=== PATIENT | male | born 1980 | race Caucasian/White ===

== ENCOUNTER 2020-03-20 08:19 | Outpatient (CLI) | payer OTHER, SELFPAY | END 2020-03-20 08:20 | disposition home or self-care (01) | LOC: ANHSURGERY 08:21 | PROVIDERS: PCP Family Medicine; Visit Provider Surgery | DX: K42.9 Umbilical hernia without obstruction or gangrene (principal) | CPT/HCPCS: 36415; 86850; 86900; 86901 ==

== ENCOUNTER 2020-03-20 08:25 | Outpatient (CLI) | payer OTHER, SELFPAY ==
[2020-03-20 09:05] LABS: Hematocrit 46.8 % (42.0-52.0); Hemoglobin 15.8 g/dL (14.0-18.0); Mean Corpuscular HGB Conc 33.8 g/dl (32-36); Mean Corpuscular Hemoglobin 34.3 pg (26-34); Mean Corpuscular Volume 101.7 fl (80-100); Mean Platelet Volume 10.1 fl (7.4-10.4); Platelet Count Result 195 k/mm3 (150-375); Red Cell Distribution Width 13.3 % (11.5-14.5); White Blood Count 6.8 K/mm3 (4.5-10.0)
[2020-03-20 09:19] LABS: Alanine Aminotransferase 102 U/L (4-50); Albumin Level 4.1 g/dL (3.5-5.1); Alkaline Phosphatase 121 U/L (38-126); Anion Gap 4 mmol/L (8-16); Aspartate Amino Transferase 114 U/L (17-59); Bilirubin,Total 1.2 mg/dL (0.2-1.3); Blood Urea Nitrogen 8 mg/dL (9-20); Calcium 8.7 mg/dL (8.4-10.2); Carbon Dioxide 35 mmol/L (22-30); Chloride 102 mmol/L (98-107); Cholesterol 239 mg/dL (0-200); Estimated Glomerular Filt Rate > 60; Glucose 134 mg/dL (75-110); HDL Direct 33 mg/dL; Potassium 4.4 mmol/L (3.4-5.0); Sodium 141 mmol/L (137-145); Triglycerides 185 mg/dL (<150)
[2020-03-20 09:31] LABS: LDL Cholesterol Direct 199 mg/dL
[2020-03-20 10:10] LABS: Free T4 Free Thyroxine 1.25 ng/mL (0.78-2.19)
== END 2020-03-20 08:26 | disposition home or self-care (01) ==
LOC: ANHLAB 08:28
PROVIDERS: PCP Family Medicine; Visit Provider Physician Assistant
DX: F32.9 Major depressive disorder, single episode, unspecified (principal); E66.01 Morbid (severe) obesity due to excess calories; Z79.899 Other long term (current) drug therapy
CPT/HCPCS: 36415; 80053; 80061; 84439; 84443; 85027; 86850; 86900; 86901

== ENCOUNTER → 2020-03-21 00:59 | Outpatient (CLI) | payer OTHER, SELFPAY ==
[2020-03-21 19:49] LABS: SARS-CoV-2 RNA PCR Negative
== END ==
PROVIDERS: PCP Family Medicine; Visit Provider Surgery
DX: Z01.812 Encounter for preprocedural laboratory examination (principal); Z20.822 Contact with and (suspected) exposure to COVID-19
CPT/HCPCS: C9803; U0003; U0005

== ENCOUNTER 2020-03-24 00:39 | Day surgery (SDC) | payer OTHER, SELFPAY ==
[2020-03-17 16:06] VITALS: BMI 48.8
--- NOTE | 2020-03-23 11:08 | WPDANESEPPF ---
Anes - Initial Pre Proc Eval Procedure: Operation Date: 03/24/20 07:30 Proposed Procedures p Laparoscopic Incarcerated Umbilical Hernia Repair with Mesh, Davinci Assisted - Kit Whiting DO Date/Time: 03/23/20 11:08 Surgeon: Kit Whiting DO Pre Op Diagnosis: incarcerated umbilical hernia Patient Data Age: 39 Gender: M Height: 1.8 m Weight: 158.76 kg Allergies Allergy/AdvReac Type Severity Reaction Status Date / Time amoxicillin Allergy Unknown Unknown Verified 03/19/20 08:44 Penicillins Allergy Unknown Unknown Verified 03/19/20 08:44 Home Medications Medication Instructions Recorded Confirmed Type sertraline 100 mg tablet See Rx Instructions .ROUTE 02/17/20 02/28/20 Rx .COMPLEX #30 tablet trazodone 50 mg tablet See Rx Instructions PO .COMPLEX 03/19/20 03/19/20 Rx #60 tablet Patient hx anesthesia problems: none Family hx anesthesia problems: none PMFSH Past Medical History Medical History (Updated 03/23/20 @ 11:09 by Tony Zapata DO) Depression, recurrent GERD (gastroesophageal reflux disease) Surgical History Surgical History S/P ACL repair Bilateral Family History Family History Mother Hypertension Family history of elevated blood lipids Family history of cardiovascular disease Father Family history of cardiovascular disease Grandparent Pancreatic cancer Social History Social History (Updated 03/24/20 @ 06:58 by Tony Zapata DO) Smoking status: Current every day smoker Tobacco type: smokeless tobacco Smokeless tobacco user: chewing tobacco Alcohol intake: current Alcohol use details: 3-6 beers daily Substance use type: does not use Spiritual care concerns: No Anes - Eval Final PreProcedure Day of Procedure 03/23/20 11:08 Patient weight: morbidly obese Heart: regular rate and rhythm Lungs: clear to auscultation and normal air movement Airway: Mallampati scale class III Neurological: alert and oriented Last oral intake: >/= 8 hours ASA classification: III Emergent: no Anesthetic plan: proceed Anesthesia type and monitoring: general ETT and standard monitoring Informed Consent: The patient's anesthetic plan and its attendant risks and benefits were discussed with the patient/family/POA. Questions were solicited and answers provided to the satisfaction of the patient/family/POA.
[2020-03-24] VITALS (8 sets, daily range): BP systolic 110–142; BP diastolic 75–87; PULSE 90–109; RESP 10–20; TEMP 36.6–36.8; O2SAT 91–97; BMI 49.1
[2020-03-24] MEDS: ACETAMINOPHEN 500 MG TABLET 1000 MG PO (07:18)
[2020-03-24] MEDS: LACTATED RINGERS 1,000 ML 30 ML IV CONT ×2 (07:18→10:41)
[2020-03-24] MEDS: KETOROLAC 15 MG/ML VIAL (*BKC) IV PUSH (07:18)
--- NOTE | 2020-03-24 07:18 | WPDHPUPDATE1 ---
History and Physical Update Update Date/Time: 03/24/20 07:18 History and Physical has been reviewed, including an updated exam of the patient. There are NO changes in the patient's condition. Risks, benefits, and alternatives have been discussed and questions answered. Patient agrees to proceed with procedure.
[2020-03-24] MEDS: CLINDAMYCIN 900 MG/D5W 50 ML 900 MG/50 ML PIGGYBACK 50 MG IVPB (08:17)
--- NOTE | 2020-03-24 09:37 | SUR.OPER ---
SYMBOTEX [id number], LOT [id number], 09-05-2024. UMBILICAL MESH.
--- NOTE | 2020-03-24 10:31 | PM.PROC ---
Procedure Note - Detailed Date of procedure: 03/24/20 Pre-op diagnosis: incarcerated umbilical hernia Post-op diagnosis: same Procedure performed: Laparoscopic incarcerated umbilical hernia repair with Symbotex mesh, da Rere assisted Description of procedure: Procedure as well as risks, benefits, and alternatives were discussed with the patient. Written consent was obtained and placed in chart prior to procedure. Patient was brought back to surgical suite. He was placed supine on operating table. Time-out was done to confirm patient and procedure. He was then intubated by the anesthesia department. A bump was placed under his left hip, and the bed was flexed slightly to extend the space between his costal margin and iliac crest. His abdomen was prepped and draped in sterile fashion using chlorhexidine prep. A 5 millimeter incision was made in the left upper quadrant, and a 5 millimeter Optiview trocar was advanced through the abdominal layers under direct visualization. Once inside the abdominal cavity, carbon dioxide insufflation was used to create a pneumoperitoneum. His abdomen was inspected. An 8 millimeter incision was made in the left lower quadrant, and an 8 millimeter robotic trocar was placed under direct visualization. Another 8 millimeter incision was made in the left lateral abdomen, and an 8 millimeter robotic trocar was placed under direct visualization. Exparel was infiltrated along the lateral abdominal carpenter to perform a transversus abdominis plane block bilaterally. The 5 millimeter port was removed, the incision was extended to 12 millimeters, and a 12 millimeter air seal port was placed under direct visualization. A Jaspreet-Urbano cone was also used to place an 0-Vicryl simple interrupted suture at this trocar site. The robotic arms were brought up to the patient's bedside and secured to the ports. The camera and instruments were inserted, and I then moved over to the robotic console and took control of the camera and instruments. After careful thorough inspection of the abdominal cavity, I began my dissection at the hernia. The incarcerated omentum was carefully reduced. A preperitoneal pocket was the only carefully created starting in the left upper quadrant using scissors with electrocautery. The pocket was extended caudally and then medially as the hernia sac and preperitoneal fat was carefully reduced from within the hernia defect. I dissected a widened the planning to allow for a 10 cm x 15 cm piece of mesh. I then measured the hernia size. The hernia measured 2 cm x 2 cm. The fascia was closed using an 0-Stratafix running suture in a vertical fashion. A 10 cm x 15 cm Symbotex mesh was then placed within the preperitoneal pocket. This was oriented vertically with the mesh centered on the hernia defect. The mesh was then secured to the abdominal wall using 2 0 Vicryl simple interrupted sutures at the corners. The peritoneum was then closed over the mesh using 3 0 V lock running absorbable suture. There was 1 small hole in the hernia sac and another hole in the peritoneum that were both closed using 3 0 Vicryl [id number] sutures. The repair was inspected, and one final inspection was made around the abdominal cavity. The robotic instruments were then removed, and the robotic arms were disengaged from the trocars. The ports were then removed under direct visualization, the camera was removed, and the pneumoperitoneum was released. The 0 Vicryl transfascial suture was tied down. The skin of the incisions was then approximated using 4-0 Monocryl subcuticular suture. Exofin glue was then applied on top. The patient was then awakened from anesthesia, extubated, and transferred to recovery. Implants: Symbotex 15cm x 10cm Mesh Anesthesia: GETA and local (Exparel) Surgeon: Kit Whiting DO Estimated blood loss (mL): 5 Drains: No Pathology: none sent Complications: No immediate complications Condition: stable Disposit
== END 2020-03-24 13:00 | disposition home or self-care (01) ==
PROVIDERS: PCP Family Medicine; Visit Provider Surgery
PROC: (CPT 49653; principal; 2020-03-24 07:30)
DX: K42.0 Umbilical hernia with obstruction, without gangrene (principal); F33.9 Major depressive disorder, recurrent, unspecified; K21.9 Gastro-esophageal reflux disease without esophagitis; F17.220 Nicotine dependence, chewing tobacco, uncomplicated; E66.01 Morbid (severe) obesity due to excess calories; Z68.42 Body mass index [BMI] 45.0-49.9, adult
CPT/HCPCS: 49653; A9270; C1781; C9290; C9803; J0330; J1100; J1885; J2250; J2370; J2405; J2704; J2710; J3010; J7030; J7120; U0003; U0005

== ENCOUNTER 2023-02-20 05:20 | Inpatient (IN) | payer OTHER, SELFPAY ==
[2023-02-20] VITALS (15 sets, daily range): BP systolic 111–132; BP diastolic 58–97; PULSE 101–125; RESP 15–27; TEMP 36.1–36.8; O2SAT 96–100; BMI 35.8
--- NOTE | ~2023-02-20 | US_ITS ---
EXAMINATION: US abdomen complete DATE: 02/20/2023 15:18 INDICATION: Abdominal pain and elevated liver enzymes. Alcohol use. TECHNIQUE: Multiple grayscale and Doppler ultrasound images of the abdomen were obtained. COMPARISON: None FINDINGS: Mild splenomegaly measuring 13.8 x 7.5 x 7.1 cm. There is normal renal contour and echogenicity bilat erally. The right kidney measures 12.3 x 5.2 x 5.9 cm and the left 12.4 x 6.4 x 5.5 cm. There are no focal renal lesions identified. There is no hydronephrosis. There is increased hepatic parenchymal echogenicity and coarsened echotexture consistent with diffuse hepatic steatosis. There is subtle leana er surface nodularity consistent with cirrhosis. No liver lesion identified. No intrahepatic biliary duct dilation suspected. Portal venous flow was seen in the hepatopetal, normal direction and has no rmal Doppler waveform. The gallbladder is normal in appearance. There is no cholelithiasis. The comm on bile duct is not clearly visualized. The right hepatic duct measures 6-7 mm, which is mildly dilat ed. The pancreatic body is normal in appearance. The pancreatic head and tail are not clearly visual ized. Small amount of perihepatic ascites. The proximal aorta and inferior vena cava are poorly visua lized but patent with normal directional flow on color Doppler. Sonographic Leblanc sign was reported as negative by the training instructor. IMPRESSION: 1. Cirrhosis and diffuse hepatic steatosis. 2. Small amount of likely secondary perihepatic ascites. 3. Mild splenomegaly suggesting portal venous hypertension. 4. Mild dilation of the right hepatic duct. The common bile duct is not clearly visualized. If there is clinical concern for biliary obstruction would consider MRCP for further evaluation. Reviewed, dictated and finalized at location [facility]. [employer] IMPRESSION: 1. Cirrhosis and diffuse hepatic steatosis. 2. Small amount of likely secondary perihepatic ascites. 3. Mild splenomegaly suggesting portal venous hypertension. 4. Mild dilation of the right hepatic duct. The common bile duct is not clearly visualized. If there is clinical concern for biliary obstruction would conside r MRCP for further evaluation.
--- NOTE | ~2023-02-20 | XR_ITS ---
Portable chest x-ray Comparison: 06/20/2017 Clinical History: Hemoptysis Findings: Lungs are clear, without focal consolidation or pleural effusion. Cardiomediastinal silho uette is stable. Bones and soft tissues are unremarkable. Impression: Normal chest. Reviewed, dictated and finalized at [facility]. [employer] INST[employer]ER Impression: Normal chest.
[2023-02-20 06:17] LABS: Basophils Absolute Auto 0.1 K/mm3 (0.0-0.1); Basophils Percent Auto 0.7 % (0.2-1.2); Eosinophils Percent Auto 0.1 % (0-4.4); Hematocrit 34.8 % (42.0-52.0); Immature Granulocyte Absolute 0.05 K/mm3 (0.00-0.031); Immature Granulocyte Percent A 0.4 % (0-0.5); Lymphocytes Percent Auto 9.6 % (18.3-44.2); Mean Corpuscular HGB Conc 31.6 g/dl (32-36); Mean Corpuscular Hemoglobin 35.4 pg (26-34); Mean Corpuscular Volume 111.9 fl (80-100); Mean Platelet Volume 10.5 fl (7.4-10.4); Monocytes Absolute Auto 0.7 K/mm3 (0.1-0.6); Monocytes Percent Auto 5.9 % (2.6-8.5); Neutrophils Absolute Auto 9.6 K/mm3 (1.3-6.7); Neutrophils Percent Auto 83.3 % (45.5-73.1); Platelet Count Result 183 k/mm3 (150-375); Red Blood Count 3.11 M/mm3 (4.6-6.20); Red Cell Distribution Width 15.8 % (11.5-14.5); White Blood Count 11.5 K/mm3 (4.5-10.0)
[2023-02-20 06:32] LABS: INR 1.3; Prothrombin Time 17.1 Seconds (11.1-14.7)
[2023-02-20 06:33] LABS: Alanine Aminotransferase 42 U/L (6-50); Albumin Level 3.4 g/dL (3.5-5.1); Alkaline Phosphatase 214 U/L (38-126); Anion Gap 12 mmol/L (8-16); Aspartate Amino Transferase 139 U/L (17-59); Bilirubin,Total 2.3 mg/dL (0.2-1.3); Blood Urea Nitrogen 11 mg/dL (9-20); Calcium 7.8 mg/dL (8.4-10.2); Carbon Dioxide 25 mmol/L (22-30); Chloride 103 mmol/L (98-107); Estimated CRCL calculation 173 ml/min; Estimated Glomerular Filt Rate > 60; Glucose 111 mg/dL (65-110); Partial Thromboplastin Time 39.4 SECONDS (22.3-36.8); Potassium 4.4 mmol/L (3.4-5.0); Sodium 140 mmol/L (137-145)
[2023-02-20] MEDS: LORazepam (*CRX) 1 MG TABLET PO (06:38)
[2023-02-20] MEDS: SODIUM CHLORIDE 0.9% IV 2,000 ML 999 ML IV CONT (06:42)
[2023-02-20 06:43] LABS: Anisocytosis 1+ (NORMAL); Platelet Estimate Adequate (Adequate); Schistocytes None Seen (NORMAL)
[2023-02-20] MEDS: METOCLOPRAMIDE HCL INJ 10 MG/2 ML VIAL IV PUSH (06:45)
--- NOTE | 2023-02-20 07:03 | ECG_ITS ---
Measurements Intervals [place] Rate: 99 P: 40 HI: 155 QRS: 42 QRSD: 97 T: 13 QT: 381 QTc: 489 Interpretive Statements SINUS RHYTHM BORDERLINE ST-T WAVE ABNORMALITY- ANT/INF LEADS BORDERLINE ECG NO PREVIOUS ECG AVAILABLE FOR COMPARISON Electronically Signed On 02-20-2023 7:58:01 COMPREHENSIVE OPHTHALMOLOGIST by Keith Goyal D.O.
--- NOTE | 2023-02-20 07:07 | ED.GENADULT ---
HPI - General Adult General Chief complaint: GI Bleed Stated complaint: Nosebleed, vomited blood first Time Seen by Provider: 02/20/23 05:31 History of Present Illness HPI narrative: This is a 42-year-old alcoholic presenting with bloody emesis. Patient woke up at 3:00 a.m. and was having coffee-ground emesis. He also had a nose bleed. patient states that he feels lightheaded and has some epigastric discomfort. Patient initially said he only drinks recreationally on the weekend but once his mother left the room and I confronted about his drinking he admits that he still drink heavily. Last drink was approximately 3 days ago. Patient feels anxious at this time. He denies any history of varicocele bleeding or liver cirrhosis. He denies history of alcohol withdrawal. Related Data Allergies Allergy/AdvReac Type Severity Reaction Status Date / Time amoxicillin Allergy Unknown Unknown Verified 02/20/23 05:33 Penicillins Allergy Unknown Unknown Verified 02/20/23 05:33 [facility], [facility] Past Medical History Medical History Depression, recurrent GERD (gastroesophageal reflux disease) Surgical History Surgical History H/O umbilical hernia repair Laparoscopic incarcerated umbilical hernia repair with Symbotex mesh, da Rere assisted S/P ACL repair Bilateral Family History Family History Mother Hypertension Family history of elevated blood lipids Family history of cardiovascular disease Father Family history of cardiovascular disease Grandparent Pancreatic cancer Social History Social History Social History: Former smokeless tobacco user Smoking status: Current every day smoker Alcohol intake: current Alcohol use details: weekends only had 8 - 10 on Fri, Sat and Sun Substance use: never Substance use type: does not use Lack of Transportation: No Lack of Food: Never True Current Housing: I Have Housing Concerned About Future Housing: No Difficulty Paying Gas/Electric Bills: No Difficulty Paying for Meds: No Currently Unemployed: No Education: High School Diploma/GED Difficulty w/ Childcare or Family Care: No Occupation/Education: unemployed Spiritual care concerns: No Exam Narrative: APPEARANCE: Patient appears uncomfortable, mild tremor baseline Head: atraumatic. EYES: EOMI, NOSE: Atraumatic NECK: Trachea midline RESPIRATORY: No increased rate of breathing clear auscultation CARDIOVASCULAR: tachycardic, mild edema lower extremities ABDOMINAL: epigastric tenderness without guarding or rebound\ digital rectal exam shows melanotic stool. hemoccult positive MUSCULOSKELETAl: No obvious deformities NEURO: Alert. Moving 4/4 extremities SKIN:: clammy skin PSYCHIATRIC: anxious appearing Course Vital Signs Vital signs: Vital Signs Temperature 96.9 F L 02/20/23 05:24 Pulse Rate 125 H 02/20/23 05:24 Respiratory Rate 20 02/20/23 05:24 Blood Pressure 132/97 H 02/20/23 05:24 Pulse Oximetry 100 02/20/23 05:24 Oxygen Delivery Room Air 02/20/23 05:24 Temperature 96.9 F L 02/20/23 05:24 Pulse Rate 110 H 02/20/23 06:59 Respiratory Rate 17 02/20/23 06:59 Blood Pressure 123/72 02/20/23 06:59 Pulse Oximetry 98 02/20/23 06:59 Oxygen Delivery Room Air 02/20/23 05:24 Medical Decision Making [facility] Narrative Medical decision making narrative: -Course: 42-year-old male with alcohol use disorder presenting with epistaxis, hematemesis and melanotic stool. epistaxis was controlled with direct pressure. He is tachycardic on arrival with cool clammy skin and a mild tremor. Suspect combination of upper GI bleed and alcohol withdrawal. Patient started on a Protonix, ceftriaxone, octreotide and given Ativan. patient will be admitted to hosp
[2023-02-20 07:19] LABS: Ethanol 12 mg/dL (<10)
[2023-02-20] MEDS: PANTOPRAZOLE SODIUM IV 40 MG VIAL 80 MG IV PUSH (07:42)
[2023-02-20] MEDS: LORazepam INJ (*CRX) 2 MG/ML VIAL IV PUSH (07:42)
[2023-02-20 08:10] LABS: Hematocrit 34.6 % (42.0-52.0); Hemoglobin 10.7 g/dL (14.0-18.0)
--- NOTE | 2023-02-20 08:20 | PC.NURSE ---
Phlebotomy called to acquire blood cultures. Unable to start anitbiotics until cultures have been obtained.
--- NOTE | 2023-02-20 09:49 | ADMGEN ---
This patient, Xavier Sanchez, was admitted to IMU Room 232-01. Patient/family oriented to hospital policies and general routines including ID bracelet, bed and alarms, visiting hours, pain management, procedures, bathroom and other care routines, personal items, smoking policy, room service/diet, and visiting hours. Information on how to activate the Rapid Response Team has been discussed. Patient/Family are encouraged to report perceived risks to care and to ask questions if they do not understand what they are told or what they should do.
[2023-02-20] MEDS: LACTATED RINGERS 1,000 ML 125 ML IV CONT (10:32)
--- NOTE | 2023-02-20 12:33 | WPDGICN ---
Assessment and Plan Assessment and plan (1) Acute GI bleeding: Code(s): K92.2 - Gastrointestinal hemorrhage, unspecified Status: Acute Assessment and Plan: admitted to hospital and started on appropriate medical therapy egd tomorrow, assess if ulcer, esophagitis, varices, etc monitor for more signs of bleeding (2) Alcohol abuse: Code(s): F10.10 - Alcohol abuse, uncomplicated Status: Acute Assessment and Plan: thiamine, monitor for withdrawal (3) Anemia: Qualifiers: Anemia type: unspecified type Qualified Code(s): D64.9 - Anemia, unspecified Code(s): D64.9 - Anemia, unspecified Status: Acute Assessment and Plan: monitor for more signs of bleeding (4) Elevated liver enzymes: Code(s): R74.8 - Abnormal levels of other serum enzymes Status: Acute Assessment and Plan: from alcohol use, will get liver ultrasound and hepatitis panel probably also component of alcoholic hepatitis (5) Depression, recurrent: Code(s): F33.9 - Major depressive disorder, recurrent, unspecified Status: Acute (6) Alcoholic hepatitis: Code(s): K70.10 - Alcoholic hepatitis without ascites Status: Acute GI Consult Note Consult date/time: 02/20/23 12:33 Reason for consult: coffee ground emesis, alcohol abuse HPI: Xavier Sanchez is a 42 year old male with history of depression, alcohol abuse (for years will drink 6-8 drinks daily, lately cut down to weekends), fatty liver here with new onset of coffee ground emesis few times but also had nose bleed, noted dark stool, denies previous GIB. Last drink few days ago. Also mild abdominal discomfort, hgb 10.7- similar to previous, macrocytosis, bili 2.3, ast/alt>2, no recent ultrasound. Started on iv protonix and octreotide Review of Systems Constitutional: Constitutional: Denies chills Eyes: Eyes: Denies blurry vision ENT: Reports epistaxis Cardiovascular: Cardiovascular: Denies chest pain Respiratory: Respiratory: Denies cough Gastrointestinal: Gastrointestinal: Reports hematemesis Genitourinary: Genitourinary: Denies dysuria Musculoskeletal: Musculoskeletal: Denies neck pain Integumentary/Breasts: Skin/Breast: Denies dry skin Neurologic: Denies Abnormal speech present Psychiatric: Psychiatric: Reports anxiety PMFSH Past Medical History Medical History (Updated 02/20/23 @ 12:38 by Tj Winston MD) Alcoholic hepatitis Depression, recurrent GERD (gastroesophageal reflux disease) Surgical History Surgical History H/O umbilical hernia repair Laparoscopic incarcerated umbilical hernia repair with Symbotex mesh, da Rere assisted S/P ACL repair Bilateral Family History Family History Mother Hypertension Family history of elevated blood lipids Family history of cardiovascular disease Father Family history of cardiovascular disease Grandparent Pancreatic cancer Social History Social History Social History: Former smokeless tobacco user Smoking status: Former smoker Tobacco type: smokeless tobacco Alcohol intake: current Drinks per week: 24 Alcohol use details: weekends only had 8 - 10 on Fri, Sat and Sun Substance use: never Substance use type: does not use Do You Feel Safe in your Home?: Yes Lack of Transportation: No Lack of Food: Never True Current Housing: I Have Housing Concerned About Future Housing: No Difficulty Paying Gas/Electric Bills: No Difficulty Paying for Meds: No Currently Unemployed: No Education: High School Diploma/GED Difficulty w/ Childcare or Family Care: No Occupation/Education: unemployed Spiritual care concerns: No Meds Home Medications and Allergies Home Medications Medication Instructions Recorded
--- NOTE | 2023-02-20 12:38 | PM.IMHP ---
H&P: HPI History of Present Illness Date/Time: 02/20/23 12:38 Chief Complaint: Coffee-ground emesis Narrative: ?This is a 42-year-old alcoholic presenting with bloody emesis.? Patient woke up at 3:00 a.m. and was having coffee-ground emesis.? He also had a nose bleed.? patient states that he feels lightheaded and has some epigastric discomfort.? Patient initially said he only drinks recreationally on the weekend but once his mother left the room and I confronted about his drinking he admits that he still drink heavily.? Last drink was approximately 3 days ago.? Patient feels anxious at this time.? He denies any history of varicocele bleeding or liver cirrhosis. He denies history of alcohol withdrawal. Related Data Review of Systems Review of Systems: - CONSTITUTIONAL: Denies weight loss, fever and chills. - HEENT: Denies changes in vision and hearing - RESPIRATORY: Denies SOB and cough. - CV: Denies palpitations and CP. - GI: Denies abdominal pain, reports nausea, vomiting and denies diarrhea. - : Denies dysuria and urinary frequency. - MSK: Denies myalgia and joint pain. - SKIN: Denies rash and pruritus. - NEUROLOGICAL: Denies headache and syncope. - PSYCHIATRIC: Denies recent changes in mood. Denies anxiety and depression. [facility] Past Medical History Medical History (Updated 02/20/23 @ 12:38 by Tj Winston MD) Alcoholic hepatitis Depression, recurrent GERD (gastroesophageal reflux disease) Surgical History Surgical History H/O umbilical hernia repair Laparoscopic incarcerated umbilical hernia repair with Symbotex mesh, da Rere assisted S/P ACL repair Bilateral Family History Family History Mother Hypertension Family history of elevated blood lipids Family history of cardiovascular disease Father Family history of cardiovascular disease Grandparent Pancreatic cancer Social History Social History Social History: Former smokeless tobacco user Smoking status: Former smoker Tobacco type: smokeless tobacco Alcohol intake: current Drinks per week: 24 Alcohol use details: weekends only had 8 - 10 on Fri, Sat and Sun Substance use: never Substance use type: does not use Do You Feel Safe in your Home?: Yes Lack of Transportation: No Lack of Food: Never True Current Housing: I Have Housing Concerned About Future Housing: No Difficulty Paying Gas/Electric Bills: No Difficulty Paying for Meds: No Currently Unemployed: No Education: High School Diploma/GED Difficulty w/ Childcare or Family Care: No Occupation/Education: unemployed Spiritual care concerns: No Meds Home Medications and Allergies Home Medications Medication Instructions Recorded Confirmed Type Celebrex 02/20/23 History sertraline 100 mg tablet 100 mg PO DAILY 02/20/23 History trazodone 50 mg tablet 50 - 100 mg PO HS PRN Insomnia 02/20/23 02/20/23 History Allergies Allergy/AdvReac Type Severity Reaction Status Date / Time amoxicillin Allergy Intermediate Rash Verified 02/20/23 10:50 Penicillins Allergy Mild Rash Verified 02/20/23 10:50 Vital Signs Vital Signs - 24 hr 02/20/23 05:24 02/20/23 05:50 02/20/23 06:59 Temperature 96.9 F L Pulse Rate 125 H 122 H 110 H Respiratory Rate 20 27 H 17 Blood Pressure 132/97 H 124/90 123/72 Pulse Oximetry 100 100 98 Oxygen Delivery Room Air 02/20/23 07:16 02/20/23 07:31 02/20/23 09:27 Temperature 97.5 F L Pulse Rate 106 H 111 H 113 H Respiratory Rate 21 H 15 26 H Blood Pressure 126/69 132/79 125/70 Pulse Oximetry 100 100 99 Oxygen Delivery 02/20/23 12:00 Temperature 98.2 F Pulse Rate 116 H Respiratory Rate 18 Blood Pressure 124/58 L Pulse Oximetry 98 Oxygen Delivery Exam Narrative: APPEARANCE:? Patient appears u
[2023-02-20] MEDS: PANTOPRAZOLE SODIUM IV 80 MG in SODIUM CHLORIDE 0.9% IV 500 ML 50 MG IV CONT ×2 (13:49→23:26)
[2023-02-20] MEDS: SODIUM CHLORIDE 0.9% IV 1,000 ML 75 ML IV CONT (13:49)
[2023-02-20 15:53] LABS: Hematocrit 29.6 % (42.0-52.0); Hemoglobin 9.9 g/dL (14.0-18.0)
[2023-02-20 22:09] LABS: Hematocrit 29.7 % (42.0-52.0); Hemoglobin 9.4 g/dL (14.0-18.0)
[2023-02-20] MEDS: chlordiazePOXIDE (*CRX) 25 MG CAPSULE PO (23:26)
[2023-02-21] VITALS (19 sets, daily range): BP systolic 85–128; BP diastolic 43–81; PULSE 87–102; RESP 18–25; TEMP 35.9–37.1; O2SAT 95–97
[2023-02-21 00:02] LABS: Glucose Point of Care 165 mg/dl (65-105)
[2023-02-21] MEDS: SODIUM CHLORIDE 0.9% IV 1,000 ML 75 ML IV CONT (03:34)
[2023-02-21 04:41] LABS: Hematocrit 25.9 % (42.0-52.0); Hemoglobin 8.3 g/dL (14.0-18.0)
[2023-02-21] MEDS: chlordiazePOXIDE (*CRX) 25 MG CAPSULE PO ×3 (05:03→23:22)
[2023-02-21 05:26] LABS: Hepatitis B Surface Antigen Negative (Negative)
[2023-02-21 05:32] LABS: HAV RESULT Negative (Negative); Hepatitis B Core IgM Result Negative (Negative)
[2023-02-21 05:40] LABS: Glucose Point of Care 136 mg/dl (65-105)
[2023-02-21 05:44] LABS: Hepatitis C Virus Antibody Negative (Negative)
--- NOTE | 2023-02-21 06:12 | PC.NURSE ---
Dr. Monge notified of repeat nose bleed this morning, labs relayed and consult for ENT this morning.
[2023-02-21] MEDS: THIAMINE HCL 200 MG/2 ML VIAL 100 MG IV PUSH (09:22)
[2023-02-21] MEDS: PANTOPRAZOLE SODIUM IV 80 MG in SODIUM CHLORIDE 0.9% IV 500 ML 50 MG IV CONT (11:30)
[2023-02-21 11:42] LABS: Glucose Point of Care 123 mg/dl (65-105)
[2023-02-21] MEDS: LACTATED RINGERS 1,000 ML 150 ML IV CONT (13:05)
--- NOTE | 2023-02-21 13:17 | WPDANESEPPF ---
Anes - Initial Pre Proc Eval Procedure: Operation Date: 02/21/23 14:30 Proposed Procedures p Esophagogastroduodenoscopy - Tj Winston MD Date/Time: 02/21/23 13:17 Surgeon: Alfonzo Helms MD Pre Op Diagnosis: Hematemesis Patient Data Age: 42 Gender: M Height: 1.8 m Weight: 117.2 kg Last Vital Signs Temp 97.4 F L 02/21/23 12:58 Pulse 98 02/21/23 12:58 Resp 18 02/21/23 12:58 BP 122/67 02/21/23 12:58 Pulse Ox 95 02/21/23 12:58 O2 Del Method Room Air 02/21/23 12:58 Allergies Allergy/AdvReac Type Severity Reaction Status Date / Time amoxicillin Allergy Intermediate Rash Verified 02/21/23 12:51 Penicillins Allergy Mild Rash Verified 02/21/23 12:51 Home Medications Medication Instructions Recorded Confirmed Type Celebrex 02/20/23 History sertraline 100 mg tablet 100 mg PO DAILY 02/20/23 02/21/23 History trazodone 50 mg tablet 50 - 100 mg PO HS PRN Insomnia 02/20/23 02/20/23 History Laboratory Tests 02/20/23 02/20/23 02/20/23 15:45 22:02 23:58 Hgb 9.9 L g/dL 9.4 L g/dL (14.0-18.0) (14.0-18.0) Hct 29.6 L % 29.7 L % (42.0-52.0) (42.0-52.0) POC Capillary Glucose 165 H mg/dl (65-105) Hepatitis A IgM Ab Hep Bs Antigen Hep B Core IgM Ab Hepatitis C Ab Screen 02/21/23 02/21/23 02/21/23 04:26 05:37 11:38 Hgb 8.3 L g/dL (14.0-18.0) Hct 25.9 L % (42.0-52.0) POC Capillary Glucose 136 H mg/dl 123 H mg/dl (65-105) (65-105) Hepatitis A IgM Ab Negative (Negative) Hep Bs Antigen Negative (Negative) Hep B Core IgM Ab Negative (Negative) Hepatitis C Ab Screen Negative (Negative) Patient hx anesthesia problems: none Family hx anesthesia problems: none Results Review: All pre-operative results and documents have been reviewed as part of the pre-operative evaluation. [facility] Past Medical History Medical History (Updated 02/20/23 @ 12:38 by Tj Winston MD) Alcoholic hepatitis Depression, recurrent GERD (gastroesophageal reflux disease) Surgical History Surgical History H/O umbilical hernia repair Laparoscopic incarcerated umbilical hernia repair with Symbotex mesh, da Rere assisted S/P ACL repair Bilateral Family History Family History Mother Hypertension Family history of elevated blood lipids Family history of cardiovascular disease Father Family history of cardiovascular disease Grandparent Pancreatic cancer Social History Social History Social History: Former smokeless tobacco user Smoking status: Former smoker Tobacco type: smokeless tobacco Alcohol intake: current Drinks per week: 24 Alcohol use details: weekends only had 8 - 10 on Fri, Sat and Sun Substance use: never Substance use type: does not use Do You Feel Safe in your Home?: Yes Lack of Transportation: No Lack of Food: Never True Current Housing: I Have Housing Concerned About Future Housing: No Difficulty Paying Gas/Electric Bills: No Difficulty Paying for Meds: No Currently Unemployed: No Education: High School Diploma/GED Difficulty w/ Childcare or Family Care: No Occupation/Education: unemployed Spiritual care concerns: No Anes - Eval Final PreProcedure Day of Procedure 02/21/23 13:17 Patient weight: obese Heart: regular rate and rhythm Lungs: clear to auscultation Airway: Mallampati scale class III Neurological: alert and oriented Last oral intake: >/= 8 hours ASA classification: IV Emergent: no Anesthetic plan: proceed Anesthesia type and monitoring: general GIVS and standard monitoring Results Review: All pre-operative results and documents have been reviewed as part of t
--- NOTE | 2023-02-21 13:45 | WPDPROCEDUR ---
Procedures Other Procedures Procedure 1: Other Procedure: Nasal endoscopy. All consents obtained. Nose anesthetized with Afrin lidocaine. Nasal scope passed. Severe folliculitis and crusting bilaterally no active bleeding. Patient tolerated the procedure well.
--- NOTE | 2023-02-21 13:46 | WPDCN ---
Assessment and Plan Assessment and plan (1) Epistaxis: Code(s): R04.0 - Epistaxis Status: Acute Plan patient should do nasal saline spray like 10 times per day in each nostril. Mupirocin ointment 4-6 times per day I personally showed amount to do this. Please send him home with a prescription for mupirocin. In the patient should see me in the next month to discuss his nose bleeds and to clear out his nose. He should continue doing what we just mentioned until then. HPI Data of Consult Date/Time: 02/21/23 13:46 Requesting Physician: Alfonzo Helms MD Primary Care Provider: eBrnice Parish MD Family Provider: patient presents the nose bleeds has when guessing is alcoholic cirrhosis as well. Presents for further evaluation treatment. Consult Narrative Narrative: Xavier Sanchez is a 42 year old male Review of Systems Review of Systems: All systems reviewed & are unremarkable except as noted in HPI and below PMFSH Past Medical History Medical History (Updated 02/21/23 @ 13:55 by Dc Gonzalez MD) Alcoholic hepatitis Depression, recurrent GERD (gastroesophageal reflux disease) Surgical History Surgical History H/O umbilical hernia repair Laparoscopic incarcerated umbilical hernia repair with Symbotex mesh, da Rere assisted S/P ACL repair Bilateral Family History Family History Mother Hypertension Family history of elevated blood lipids Family history of cardiovascular disease Father Family history of cardiovascular disease Grandparent Pancreatic cancer Social History Social History Social History: Former smokeless tobacco user Smoking status: Former smoker Tobacco type: smokeless tobacco Alcohol intake: current Drinks per week: 24 Alcohol use details: weekends only had 8 - 10 on Fri, Sat and Sun Substance use: never Substance use type: does not use Do You Feel Safe in your Home?: Yes Lack of Transportation: No Lack of Food: Never True Current Housing: I Have Housing Concerned About Future Housing: No Difficulty Paying Gas/Electric Bills: No Difficulty Paying for Meds: No Currently Unemployed: No Education: High School Diploma/GED Difficulty w/ Childcare or Family Care: No Occupation/Education: unemployed Spiritual care concerns: No Meds Home Medications and Allergies Home Medications Medication Instructions Recorded Confirmed Type Celebrex 02/20/23 History sertraline 100 mg tablet 100 mg PO DAILY 02/20/23 02/21/23 History trazodone 50 mg tablet 50 - 100 mg PO HS PRN Insomnia 02/20/23 02/20/23 History Allergies Allergy/AdvReac Type Severity Reaction Status Date / Time amoxicillin Allergy Intermediate Rash Verified 02/21/23 12:51 Penicillins Allergy Mild Rash Verified 02/21/23 12:51 Vital Signs Vital Signs - 24 hr 02/20/23 14:00 02/20/23 16:00 02/20/23 16:00 Temperature Pulse Rate 122 H 112 H Respiratory Rate Blood Pressure Pulse Oximetry Oxygen Delivery Room Air 02/20/23 16:00 02/20/23 18:00 02/20/23 20:31 Temperature 36.4 C L 36.4 C L Pulse Rate 112 H 110 H 109 H Respiratory Rate 18 16 Blood Pressure 111/63 126/68 Pulse Oximetry 96 99 Oxygen Delivery 02/20/23 20:00 02/20/23 20:00 02/20/23 22:00 Temperature Pulse Rate 120 H 105 H Respiratory Rate Blood Pressure Pulse Oximetry Oxygen Delivery Room Air 02/20/23 23:51 02/21/23 00:00 02/21/23 00:00 Temperature 36.5 C Pulse Rate 101 H 101 H 102 H Respiratory Rate 20 Blood Pressure 113/70 Pulse Oximetry 97 Oxygen Delivery Room Air 02/21/23 02:00 02/21/23 03:37 02/21/23 04:38 Temperature 36.4 C Pulse Rate 93 94 93 Respiratory Rate 20 Blood Pressure 115/75 Pulse Oximetry 97 Oxygen Delivery Room Air
--- NOTE | 2023-02-21 13:56 | PM.IMPN ---
Progress Note: A&P Assessment and Plan (1) Acute GI bleeding: Code(s): K92.2 - Gastrointestinal hemorrhage, unspecified Status: Acute (2) Alcohol abuse: Code(s): F10.10 - Alcohol abuse, uncomplicated Status: Acute (3) Impaired fasting glucose: Code(s): R73.01 - Impaired fasting glucose Status: Acute (4) Morbid obesity with BMI of 50.0-59.9, adult: Code(s): E66.01 - Morbid (severe) obesity due to excess calories; Z68.43 - Body mass index [BMI] 50.0-59.9, adult Status: Acute Plan Acute GI bleed with coffee-ground emesis. History of alcohol abuse hence placed on octreotide and Protonix drip. EGD with no findings of GI bleed mild gastritis seen in the stomach gastritis had erythematous and edematous changes with no or eat zones are ulcers biopsies were taken. PPI daily. Monitor H&H. Will stop octreotide drip Acute on chronic blood-loss anemia Chronic alcohol abuse monitor CIWA protocol Librium and lorazepam p.r.n. 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 There is mild dilatation of the right hepatic duct common bile duct not feel it is clearly visualized to consider MRCP await GI recommendation trend liver enzyme Code status full code Subjective Date/time seen: 02/21/23 13:56 Interval history: No new complaint feeling better still having some dark stool going for EGD today Review of Systems Review of Systems: All systems reviewed & are unremarkable except as noted in HPI and below Exam Narrative: APPEARANCE:? Patient appears in no acute distress mild tremor baseline Head: atraumatic. EYES:? EOMI, NOSE: Atraumatic NECK: Trachea midline RESPIRATORY: No increased rate of breathing clear auscultation CARDIOVASCULAR:? Regular rate and rhythm, mild edema lower extremities ABDOMINAL:? Mild epigastric tenderness without guarding or rebound\ MUSCULOSKELETAl: No obvious deformities NEURO: Alert. Moving 4/4 extremities SKIN:: ? clammy skin PSYCHIATRIC:? Normal mood Objective Data Vital Signs Vital Signs: Vital Signs - 24 hr 02/20/23 14:00 02/20/23 16:00 02/20/23 16:00 Temperature Pulse Rate 122 H 112 H Respiratory Rate Blood Pressure Pulse Oximetry Oxygen Delivery Room Air 02/20/23 16:00 02/20/23 18:00 02/20/23 20:31 Temperature 97.5 F L 97.5 F L Pulse Rate 112 H 110 H 109 H Respiratory Rate 18 16 Blood Pressure 111/63 126/68 Pulse Oximetry 96 99 Oxygen Delivery 02/20/23 20:00 02/20/23 20:00 02/20/23 22:00 Temperature Pulse Rate 120 H 105 H Respiratory Rate Blood Pressure Pulse Oximetry Oxygen Delivery Room Air 02/20/23 23:51 02/21/23 00:00 02/21/23 00:00 Temperature 97.7 F Pulse Rate 101 H 101 H 102 H Respiratory Rate 20 Blood Pressure 113/70 Pulse Oximetry 97 Oxygen Delivery Room Air 02/21/23 02:00 02/21/23 03:37 02/21/23 04:38 Temperature 97.6 F Pulse Rate 93 94 93 Respiratory Rate 20 Blood Pressure 115/75 Pulse Oximetry 97 Oxygen Delivery Room Air 02/21/23 06:00 02/21/23 07:45 02/21/23 09:35 Temperature 96.7 F L Pulse Rate 94 94 87 Respiratory Rate 22 H Blood Pressure 118/70 Pulse Oximetry 97 Oxygen Delivery 02/21/23 08:00 02/21/23 10:00 02/21/23 08:00 Temperature Pulse Rate 95 90 Respiratory Rate Blood Pressure Pulse Oximetry Oxygen Delivery Room Air 02/21/23 11:37 02/21/23 12:00 02/21/23 12:58 Temperature 97.5 F L 97.4 F L Pulse Rate 96 98 Respiratory Rate 18 18 Blood Pressure 119/74 122/67 Pulse Oximetry 95 95 Oxygen Delivery Room Air Room Air Intake/Output Intake/Output: Intake & Output 02/18/23 02/19/23 02/20/23 02/21/23 23:59 23:59 23:59 23:59 Intake Total
[2023-02-21 18:20] LABS: Glucose Point of Care 107 mg/dl (65-105)
--- NOTE | 2023-02-21 23:24 | PC.NURSE ---
Report given to Sophie MORTENSEN, all patients belongings packed, patient to go to room 319.
--- NOTE | 2023-02-21 23:50 | PC.NURSE ---
This patient, Xavier Sanchez, was received from [[phone] ] on 02/21/23 at 2330. Patient/family oriented to unit policies and routines. Call light in reach, Safe environment maintained.
[2023-02-22 05:46] VITALS: BP 115/54; PULSE 82; RESP 13; TEMP 36.7; O2SAT 97
[2023-02-22] MEDS: chlordiazePOXIDE (*CRX) 25 MG CAPSULE PO (06:06)
[2023-02-22 06:46] LABS: Eosinophils Absolute Auto 0.1 K/mm3 (0-0.3); Hematocrit 25.4 % (42.0-52.0); Hemoglobin 8.1 g/dL (14.0-18.0); Immature Granulocyte Absolute 0.01 K/mm3 (0.00-0.031); Immature Granulocyte Percent A 0.2 % (0-0.5); Immature Platelet Fraction Pct 4.5 % (0.9-11.2); Lymphocytes Absolute Auto 1.07 K/mm3 (0.9-3.2); Lymphocytes Percent Auto 26.6 % (18.3-44.2); Mean Corpuscular HGB Conc 31.9 g/dl (32-36); Mean Corpuscular Hemoglobin 35.5 pg (26-34); Mean Corpuscular Volume 111.4 fl (80-100); Mean Platelet Volume 10.8 fl (7.4-10.4); Monocytes Absolute Auto 0.5 K/mm3 (0.1-0.6); Monocytes Percent Auto 11.9 % (2.6-8.5); Neutrophils Absolute Auto 2.3 K/mm3 (1.3-6.7); Neutrophils Percent Auto 58.3 % (45.5-73.1); Platelet Count Result 98 k/mm3 (150-375); Red Blood Count 2.28 M/mm3 (4.6-6.20); Red Cell Distribution Width 15.1 % (11.5-14.5)
[2023-02-22 06:58] LABS: Alanine Aminotransferase 31 U/L (6-50); Albumin Level 2.6 g/dL (3.5-5.1); Alkaline Phosphatase 134 U/L (38-126); Anion Gap 6 mmol/L (8-16); Aspartate Amino Transferase 121 U/L (17-59); Bilirubin,Total 2.5 mg/dL (0.2-1.3); Blood Urea Nitrogen 8 mg/dL (9-20); Calcium 7.2 mg/dL (8.4-10.2); Carbon Dioxide 26 mmol/L (22-30); Chloride 105 mmol/L (98-107); Estimated CRCL calculation 176 ml/min; Estimated Glomerular Filt Rate > 60; Glucose 102 mg/dL (65-110); Potassium 3.3 mmol/L (3.4-5.0); Sodium 137 mmol/L (137-145)
[2023-02-22 08:00] VITALS: PULSE 82; RESP 13; O2SAT 97
--- NOTE | 2023-02-22 08:07 | P.PNAN_ITS ---
Anes - Prog Note Post-Op Date/Time: 02/22/23 08:07 Cardiovascular status: normal Respiratory status: normal Airway patency: baseline Mental status: baseline Post-Op hydration status: normal Vital Signs: Last Vital Signs Temp 36.7 C 02/22/23 05:46 Pulse 82 02/22/23 05:46 Resp 13 02/22/23 05:46 BP 115/54 L 02/22/23 05:46 Pulse Ox 97 02/22/23 05:46 O2 Del Method Room Air 02/21/23 20:00 Pain Score (VAS): 0/10 I/O: Intake & Output 02/21/23 02/22/23 02/22/23 23:59 07:59 15:59 Intake Total 520 750 Output Total 200 Balance 320 750 Laboratory Tests 02/22/23 06:09 02/22/23 06:09 02/21/23 02/21/23 02/22/23 11:38 18:17 06:09 WBC 4.0 L RBC 2.28 L Hgb 8.1 L Hct 25.4 L MCV 111.4 H MCH 35.5 H MCHC 31.9 L RDW 15.1 H Plt Count 98 L MPV 10.8 H Immature Gran % (Auto) 0.2 Neut % (Auto) 58.3 Lymph % (Auto) 26.6 [place] % (Auto) 11.9 H Eos % (Auto) 2.0 Baso % (Auto) 1.0 Lymph # (Auto) 1.07 [place] # (Auto) 0.5 Eos # (Auto) 0.1 Baso # (Auto) 0.0 Abs Immat Gran (auto) 0.01 Absolute Neuts (auto) 2.3 Absolute Nucleated RBC 0.0 Nucleated RBC % 0.0 Platelet Estimate Pending % Immature Plt Fraction 4.5 Schistocytes Pending Sodium 137 Potassium 3.3 L Chloride 105 Carbon Dioxide 26 Anion Gap 6 L BUN 8 L Creatinine 0.60 L Estim Creat Clear Calc 176 Estimated GFR > 60 Glucose 102 POC Capillary Glucose 123 H 107 H Calcium 7.2 L Magnesium 2.0 Total Bilirubin 2.5 H AST 121 H ALT 31 Alkaline Phosphatase 134 H Total Protein 6.0 L Albumin 2.6 L Microbiology 02/20/23 09:46 Blood Blood Culture - Preliminary 02/20/23 08:30 Blood Blood Culture - Preliminary Post-procedural complaints: none Patient Feedback: Patient satisfied with anesthetic care.
[2023-02-22 08:27] LABS: Platelet Estimate Decreased (Adequate); Schistocytes None Seen (NORMAL)
[2023-02-22 08:28] LABS: Anisocytosis 1+ (NORMAL)
[2023-02-22] MEDS: THIAMINE HCL 200 MG/2 ML VIAL 100 MG IV PUSH (09:25)
[2023-02-22] MEDS: PANTOPRAZOLE 40 MG TABLET PO (09:25)
--- NOTE | 2023-02-22 12:50 | PM.DS ---
DS: Admitting Diagnosis Discharge Date 02/22/2023 Admitting Diagnosis Coffee-ground emesis DS: Discharge Diagnosis Discharge Diagnosis (1) Epistaxis: Code(s): R04.0 - Epistaxis Status: Acute Assessment and Plan: Acute; Hx of intermittent episodes Resolved (2) Acute GI bleeding: Code(s): K92.2 - Gastrointestinal hemorrhage, unspecified Status: Acute Assessment and Plan: Coffee-ground emesis. Probable swallowing of epistaxis bleeds Resolved (3) Alcohol abuse: Code(s): F10.10 - Alcohol abuse, uncomplicated Status: Acute Assessment and Plan: Stable; Cessation counseling, 3 minutes. (4) Anemia: Qualifiers: Anemia type: unspecified type Qualified Code(s): D64.9 - Anemia, unspecified Code(s): D64.9 - Anemia, unspecified Status: Acute Assessment and Plan: Acute blood loss Anemia. Hb is stable (5) Morbid obesity with BMI of 50.0-59.9, adult: Code(s): E66.01 - Morbid (severe) obesity due to excess calories; Z68.43 - Body mass index [BMI] 50.0-59.9, adult Status: Acute Assessment and Plan: Diet and lifestyle modiffication counseling Plan Will discharge today, 02/21/23 Start on Protonix Will f/u with GI and PCP in the outpatient setting. Avoid NSAIDs DS: Summary Hospital Course Hospital Course: This is a 42-year-old alcoholic presenting with bloody emesis.? Patient woke up at 3:00 a.m. and was having coffee-ground emesis.? He also had a nose bleed.? patient states that he feels lightheaded and has some epigastric discomfort.? Patient initially said he only drinks recreationally on the weekend but once his mother left the room and I confronted about his drinking he admits that he still drink heavily.? Last drink was approximately 3 days ago.? Patient feels anxious at this time.? He denies any history of varicocele bleeding or liver cirrhosis. He denies history of alcohol withdrawal. Radiology Results: ITS Impressions Chest X-Ray? 02/20/23 07:37 Impression: ? Normal chest. ? Abdomen Ultrasound? 02/20/23 16:38 IMPRESSION: 1. Cirrhosis and diffuse hepatic steatosis. 2. Small amount of likely secondary perihepatic ascites. 3. Mild splenomegaly suggesting portal venous hypertension. 4. Mild dilation of the right hepatic duct. The common bile duct is not clearly visualized. If there is clinical concern for biliary obstruction would consider MRCP for further evaluation. EGD: Unremarkable for acute bleeding; recommendation was to take daily PPI and f/u with GI Status at Discharge Overall status at discharge: patient is progressing back to baseline Time Spent with Patient Time attestation: Total time spent providing and/or coordinating discharge services: Time spent: Greater than 30 minutes Exam Const: General: comfortable and no acute distress HENMT: Face/Nose/Sinus: Normal nares present Eyes: General: appearance normal, both eyes and all related structures Pupils: Equal, round and reactive pupils present Neck: Neck: supple Resp: Effort & Inspection: normal respiratory effort Cardio: Rate: regular rate Skin: General skin exam: normal color Neuro: General: gait normal Extrem: General: normal to inspection Psych: Mental Status: mental status grossly normal DS: Data Data Completed and Pending Completed studies during hospitalization: Pending at discharge 02/21/23 13:53 Surgical [PTH] Routine Labs on day of discharge: Labs from last 24 hours 02/22/23 02/21/23 06:09 18:17 WBC 4.0 L RBC 2.28 L Hgb 8.1 L Hct 25.4 L MCV 111.4 H MCH 35.5 H MCHC 31.9 L RDW 15.1 H Plt Count 98 L MPV 10.8 H Immature Gran % (Auto) 0.2 Neut % (Auto) 58.3 Lymph % (Auto) 26.6 [place] % (Auto) 11.9 H Eos % (Auto) 2.0 Baso % (Auto) 1.0 Lymph # (Auto) 1.07 [place] # (Auto) 0.5 Eos # (Auto) 0.1 Baso # (Auto) 0.0 Abs Immat Gran (auto) 0.01 Absolute Neuts (au
== END 2023-02-22 13:09 | disposition home or self-care (01) | DRG 253 ==
LOC: ANHED 07:27 → ANHIMU 08:46 → ANH3MEDSUR 02-21 23:26
PROVIDERS: Internal Medicine Gastroenterology; Admitting Provider Internal Medicine; Emergency Provider Emergency Medicine; PCP Family Medicine; Visit Provider Internal Medicine
PROC: 0DJ08ZZ Inspection of Upper Intestinal Tract, Via Natural or Artificial Opening Endoscopic (ICD-10-PCS; CPT 43235; principal; 2023-02-21 14:30)
DX: K92.0 Hematemesis (principal); R04.0 Epistaxis; D62 Acute posthemorrhagic anemia; K29.70 Gastritis, unspecified, without bleeding; K92.1 Melena; K70.30 Alcoholic cirrhosis of liver without ascites; F10.10 Alcohol abuse, uncomplicated; F41.9 Anxiety disorder, unspecified; F33.9 Major depressive disorder, recurrent, unspecified; K70.10 Alcoholic hepatitis without ascites; R73.01 Impaired fasting glucose; L73.9 Follicular disorder, unspecified; E66.01 Morbid (severe) obesity due to excess calories; Z68.36 Body mass index [BMI] 36.0-36.9, adult
CPT/HCPCS: 36415; 71045; 76700; 80053; 80074; 80307; 82607; 82746; 82948; 83735; 85014; 85018; 85025; 85055; 85610; 85730; 87040; 88305; 93005; 96361; 96365; 96366; 96367; 96375; 99285; A9270; C9113; G0379; J0696; J2060; J2354; J2405; J2704; J2765; J3010; J3411; J7030; J7040; J7120

== ENCOUNTER 2024-06-04 16:03 | Outpatient (CLI) | payer OTHER, SELFPAY ==
--- NOTE | ~2024-06-04 | CT_ITS ---
Non-contrast CT scan of the Abdomen and Pelvis Clinical indication: Cirrhosis Technique: 2.5 mm axial scans were obtained through the abdomen and pelvis without intravenous or or al contrast. Dose reduction technique was used on this scan by utilizing automated exposure control a nd iterative reconstruction technique. The dose-length product (DLP) was 1623.31 mGy-cm. Findings: Images through the lung bases reveal no abnormalities. Nodular contour of the liver is compatible cirrhosis. No hepatic mass or biliary dilatation evident. The right kidney, spleen, pancreas, gallbladder, and adrenals appear normal. Left renal cyst present. There is no aortic aneurysm. There is no evidence of bowel obstruction. Images through the pelvis were performed. There is no evidence of ascites or lymphadenopathy. Urinary bladder unremarkable. No pelvic mass seen. There are bilateral L5 pars interarticularis defects, with minimal grade 1 anterolisthesis of L5 over S1. Impression: Cirrhotic morphology of liver. No hepatic mass evident on noncontrast exam. Reviewed, dictated and finalized at [facility]. Impression: Cirrhotic morphology of liver. No hepatic mass evident on noncontrast exam.
== END 2024-06-04 16:04 | disposition home or self-care (01) ==
PROVIDERS: PCP Family Medicine; Visit Provider Family Medicine
DX: K74.60 Unspecified cirrhosis of liver (principal); R18.8 Other ascites
CPT/HCPCS: 74176